=== PATIENT | male | born 2000 | race Caucasian/White ===

== ENCOUNTER 2023-04-24 20:26 | Emergency (ER) | payer OTHER ==
[~2023-04-24] VITALS: Ht 177.8 cm; Wt 63.6 kg
[2023-04-24 20:27] VITALS: BP 138/87
== END 2023-04-25 01:51 | disposition home or self-care (01) ==
LOC: M ED 20:26
DX: S62.611A Displaced fracture of proximal phalanx of left index finger, initial encounter for closed fracture (principal); W23.0XXA Caught, crushed, jammed, or pinched between moving objects, initial encounter; Y99.1 Military activity

== ENCOUNTER → 2023-05-17 | Outpatient (CLI) | payer OTHER | LOC: M SOG 10:46 | PROVIDERS: ATTEND Physician Assistant | DX: S62.621A Displaced fracture of middle phalanx of left index finger, initial encounter for closed fracture (principal); Z53.9 Procedure and treatment not carried out, unspecified reason ==